=== PATIENT | female | born 1980 | race Caucasian/White ===

== ENCOUNTER 2018-10-31 15:59 | Outpatient (CLI) | payer OTHER ==
--- NOTE | 2018-10-31 16:43 | CT ---
CT Chest WO Con History: Dyspnea for 6 days. Comparison: None. Findings: The lungs are clear. No pneumothorax. No effusion. No suspicious pulmonary nodule. No conso lidation. Small calcified granuloma left lower lobe. Hypodensity superior pole left kidney measures fluid attenuation suggesting a cyst. Remainder of the upper abdomen is unremarkable. No displaced rib fracture. No acute osseous abnormality. Sternum and manubrium are intact. Skeletal v ertebra are intact. Impression: Normal examination of the chest. No evidence for pneumonia or reactive airway disease. No pneumothorax.
== END 2018-10-31 16:00 | disposition home or self-care (01) ==
LOC: SCSCT 15:59
PROVIDERS: ATTEND Family Medicine
DX: R06.02 Shortness of breath (principal)
CPT/HCPCS: 71250

== ENCOUNTER 2018-11-14 09:28 | Outpatient (CLI) | payer OTHER ==
--- NOTE | 2018-11-14 10:18 | MMO ---
Bilateral MAMMO Bilat Diag [facility]+DOMINGO. CLINICAL HISTORY: Patient is 38 years old and is seen for diagnostic exam. The patient has no family history of breast cancer. The patient has no personal history of cancer. VIEWS: The views performed were: bilateral craniocaudal with tomosynthesis; bilateral mediolateral oblique with tomosynthesis; and bilateral mediolateral with tomosynthesis. FILMS COMPARED: The present examination has been compared to a prior imaging study performed at [facility] on 11/14/2018. This study has been interpreted with the assistance of computer-aided detection. MAMMOGRAM FINDINGS: The breasts are extremely dense, which may lower the sensitivity of mammography. There are no suspicious masses, suspicious calcifications, or areas of architectural distortion. There are no mammographic or sonographic abnormalities to explain the patient's reported left nipple discharge. The patient is referred back to her clinician. Negative imaging findings should not preclude further evaluation if clinical findings are suspicious. IMPRESSION: THERE ARE NO MAMMOGRAPHIC OR SONOGRAPHIC ABNORMALITIES TO EXPLAIN THE PATIENT'S REPORTED LEFT NIPPLE DISCHARGE. THE PATIENT IS REFERRED BACK TO HER CLINICIAN. NEGATIVE IMAGING FINDINGS SHOULD NOT PRECLUDE FURTHER EVALUATION IF CLINICAL FINDINGS ARE SUSPICIOUS. 3BTHE RESULTS OF THIS EXAM WERE SENT TO THE PATIENT.0B ACR BI-RADS Category 1 - Negative MAMMOGRAPHY NOTE: 1. A negative mammogram report should not delay a biopsy if a dominant of clinically suspicious mass is present. 2. Approximately 10% to 15% of breast cancers are not detected by mammography. 3. Adenosis and dense breasts may obscure an underlying neoplasm. Reported by: KENNEDY TOLENTINO MD Electonically Signed: [id number]
--- NOTE | 2018-11-14 10:57 | ULT ---
LIMITED LEFT BREAST ULTRASOUND: Date: 11/14/18 PROVIDED CLINICAL HISTORY: Left breast discharge. FINDINGS: Limited sonographic interrogation of the retroareolar region of the left breast demonstrates a normal sonographic appearance to this region without evidence for ductal dilatation or mass. IMPRESSION: BI-RADS Category 1 - Negative. Negative imaging findings should not preclude further evaluation of a clinically suspicious finding. The patient is referred back to her clinician. POS: OFF
== END 2018-11-14 09:29 | disposition home or self-care (01) ==
LOC: BICMAMMO 09:28
PROVIDERS: ATTEND Obstetrics & Gynecology
DX: N64.52 Nipple discharge (principal)
CPT/HCPCS: 77066; G0279

== ENCOUNTER 2018-12-30 08:56 | Outpatient (CLI) | payer OTHER ==
--- NOTE | 2018-12-30 12:32 | RAD ---
2 VIEWS OF CHEST: Date: 12/30/18 COMPARISON: None. HISTORY: Shortness of breath. Correlation with VQ scan. FINDINGS: Two views of the chest show normal sized cardiomediastinal silhouette. There is no evidence of consol idation, mass, or pleural effusion. The bones are unremarkable. IMPRESSION: No evidence of acute cardiopulmonary disease. POS: TPC
--- NOTE | 2018-12-30 13:55 | NM ---
NUCLEAR MEDICINE VENTILATION PERFUSION STUDY: Date: 12/30/18 HISTORY: Shortness of breath. Dyspnea. COMPARISON: Chest x-ray done today. FINDINGS: The ventilation portion of this study was performed using 9.8 mCi Xenon-133 gas, followed by perfusio n study using 6.1 mCi 99m-technetium MAA. This shows a fairly normal distribution of the radiopharmac eutical. No signs for infarct. IMPRESSION: Unremarkable ventilation perfusion exam. Very low probability of pulmonary embolus. POS: TPC
== END 2018-12-30 08:57 | disposition home or self-care (01) ==
LOC: CP 08:56 → NM 08:57
PROVIDERS: ATTEND Internal Medicine Critical Care Medicine
DX: R06.00 Dyspnea, unspecified (principal)
CPT/HCPCS: 71046; 78582; 94060; 94727; 94729; A9540; A9558